=== PATIENT | female | born 1990 | race Caucasian/White ===

== ENCOUNTER 2019-07-13 12:38 | Outpatient (CLI) | payer OTHER ==
[2019-07-13 12:55] LABS: HGB - HEMOGLOBIN 14.2 g/dL (12.0-16.0); MEAN CORPUSCULAR HGB CONC 33.7 g/dL (32.0-36.0); MEAN CORPUSCULAR VOLUME 88.8 fL (81.0-99.0); MEAN PLATELET VOLUME 8.8 fL (7.9-10.8); RED BLOOD COUNT 4.74 10^6/uL (4.20-5.40); RED CELL DISTRIBUTION WIDTH 12.6 % (12.0-15.0); WHITE BLOOD COUNT 12.5 x10^3/uL (4.8-10.8)
[2019-07-13 13:24] LABS: ALBUMIN 4.3 g/dL (3.2-5.5); ALBUMIN/GLOBULIN RATIO 1.1 (1.0-2.2); BILIRUBIN,TOTAL 0.6 mg/dL (0.2-1.0); CALCIUM 9.5 mg/dL (8.5-10.3); CREATININE 0.9 mg/dL (0.4-1.0); TOTAL PROTEIN 8.1 g/dL (6.7-8.2)
[2019-07-13 13:39] LABS: HB2 TOTAL 14.3 g/dL; HEMOGLOBIN A1C 0.49 g/dL; HEMOGLOBIN A1C % 5.3 % (4.6-6.2)
== END 2019-07-13 12:39 | disposition home or self-care (01) ==
LOC: LAB 12:38
PROVIDERS: ATTEND Obstetrics & Gynecology
DX: Z00.00 Encounter for general adult medical examination without abnormal findings (principal); I49.3 Ventricular premature depolarization; R00.2 Palpitations
CPT/HCPCS: 36415; 80053; 83036; 84443; 85027; 93005

== ENCOUNTER 2022-08-04 15:34 | Outpatient (CLI) | payer BC ==
[2022-08-04 23:20] LABS: BACTERIAL VAGINOSIS DNA NEGATIVE (NEGATIVE); CANDIDA GLABRATA DNA NEGATIVE (NEGATIVE); CANDIDA GROUP DNA NEGATIVE (NEGATIVE); CANDIDA KRUSEI DNA NEGATIVE (NEGATIVE); TRICHOMONAS VAGINALIS DNA NEGATIVE (NEGATIVE)
== END 2022-08-04 15:35 | disposition home or self-care (01) ==
LOC: LAB.N 15:34
PROVIDERS: ATTEND Nurse Practitioner
DX: N91.2 Amenorrhea, unspecified (principal); N89.8 Other specified noninflammatory disorders of vagina; R10.2 Pelvic and perineal pain
CPT/HCPCS: 36415; 81514; 84702

== ENCOUNTER 2024-04-10 08:30 | Outpatient (CLI) | payer BC ==
--- NOTE | 2024-04-10 13:40 | XRAY Report ---
PROCEDURE: Hand 1-2V RT INDICATIONS: CONTUSION OF RIGHT HAND TECHNIQUE: 3 views of the hand(s) acquired. COMPARISON: None. FINDINGS: Bones: No fractures or dislocations. No suspicious bony lesions. Soft tissues: No suspicious soft tissue calcifications or masses. IMPRESSION: No visualized acute fracture or dislocation. However, occult injury cannot be excluded. Recommend rakan rt interval imaging follow-up in 7-10 days as clinically indicated for additional evaluation. Reviewed by: Khushbu Suazo MD on 04/10/2024 1:39 PM PDT Approved by: Khushbu Suazo MD on 04/10/2024 1:39 PM PDT Station ID: [id number]
--- NOTE | 2024-04-10 13:40 | XRAY Report ---
PROCEDURE: Ankle 3+V RT INDICATIONS: CONTUSION OF RIGHT ANKLE TECHNIQUE: 3 views of the ankle were acquired. COMPARISON: None. FINDINGS: Bones: No fractures or dislocations. Ankle mortise is normally aligned. No suspicious bony lesions . Soft tissues: Mild ankle edema. Achilles tendon appears normal. IMPRESSION: No visualized acute fracture or dislocation. However, occult injury cannot be excluded. Recommend rakan rt interval imaging follow-up in 7-10 days as clinically indicated for additional evaluation. Reviewed by: Khushbu Suazo MD on 04/10/2024 1:38 PM PDT Approved by: Khushbu Suazo MD on 04/10/2024 1:38 PM PDT Station ID: [id number]
== END 2024-04-10 08:45 | disposition home or self-care (01) ==
LOC: DI.N 08:30
PROVIDERS: ATTEND Nurse Practitioner
DX: S60.221A Contusion of right hand, initial encounter (principal); S90.01XA Contusion of right ankle, initial encounter